=== PATIENT | female | born 1985 ===

== ENCOUNTER 2022-10-29 15:43 | Emergency (ER) | payer OTHER, SELFPAY ==
[2022-10-29 15:50] VITALS: BP 134/72; PULSE 78; RESP 16; TEMP 36.3; O2SAT 100
[2022-10-29 16:23] LABS: Glucose Point of Care 73 mg/dl (65-105)
--- NOTE | 2022-10-29 18:07 | PC.NURSE ---
Patient observed by this RN leaving the ER with her belongings and her SO. She did not communicate that she was no longer wanting to be seen but it is assumed at this time.
== END 2022-10-29 18:52 | disposition left against medical advice (07) ==
PROVIDERS: Emergency Provider Emergency Medicine
DX: R41.82 Altered mental status, unspecified (principal)
CPT/HCPCS: 81025; 82948; 99199